=== PATIENT | male | born 1990 ===

== ENCOUNTER 2019-02-07 10:17 | Emergency (ER) | payer OTHER ==
[2019-02-07 10:21] VITALS: BMI 23.2
[2019-02-07 10:22] VITALS: RESP 18
[2019-02-07] MEDS ORDERED: MethylPREDNISolone 40 mg Vial IM STA (11:02)
--- NOTE | 2019-02-07 11:06 | C.PDOC ---
History Of Present Illness Patient is a 28 year old male, otherwise well, who presents to the ED c/o one week history of bilateral itchy rash to the arms. He states that the rash is very itchy and burning, crusty, and has been draining. He denies any treatment of his symptoms. Patient states that he works in construction and is unsure of any exposure to plants or other materials that may have caused his rash. He denies any new use of lotions, medications, ointments, fevers, recent travel, sick contacts, difficulty breathing, speaking, or swallowing. Time Seen by Provider: 02/07/19 10:54 Chief Complaint (Nursing): Abnormal Skin Integrity History Per: Patient History/Exam Limitations: no limitations Onset/Duration Of Symptoms: Days (one week) Current Symptoms Are (Timing): Still Present Quality Of Symptoms: Itching, Draining, Other (burning) Recent travel outside of the [place]: No Additional History Per: Patient Past Medical History Reviewed: Historical Data, Nursing Documentation, Vital Signs Vital Signs: Last Vital Signs Temp 98.7 F 02/07/19 10:22 Pulse 68 02/07/19 10:22 Resp 18 02/07/19 10:22 BP 136/82 02/07/19 10:22 Pulse Ox 98 02/07/19 10:22 Primary Care Provider: FAMILY PROVIDER,NO - Medical History PMH: No Chronic Diseases Surgical History: No Surg Hx Family History: States: No Known Family Hx - Social History Hx Alcohol Use: No Hx Substance Use: No Review Of Systems Except As Marked, All Systems Reviewed And Found Negative. Constitutional: Negative for: Fever, Chills Cardiovascular: Negative for: Chest Pain Respiratory: Negative for: Shortness of Breath Skin: Positive for: Rash (itchy, crusty, burning rash to bilateral arms. Has also been draining ) Physical Exam - Physical Exam Appears: Well, Non-toxic, No Acute Distress Skin: Rash (scattered excoriated maculopapular rash to anterior forearms. Some lesions have moreira crusting exudate ) Head: Atraumatic, Normacephalic Eye(s): bilateral: Normal Inspection Nose: Normal Oral Mucosa: Moist Tongue: Normal Appearing, No Swelling Lips: Normal Appearing, No Swelling Throat: Normal, No Erythema, No Drooling, No Mass Neck: Normal, Normal ROM, No Trachea Deviated Chest: Symmetrical Cardiovascular: Rhythm Regular Respiratory: Normal Breath Sounds, No Rales, No Rhonchi, No Wheezing Extremity: Normal ROM, No Tenderness Neurological/Psych: Oriented x3, Normal Speech, Normal Cognition ED Course And Treatment O2 Sat by Pulse Oximetry: 98 (on RA) Pulse Ox Interpretation: Normal Medical Decision Making Medical Decision Making: Plan: Solu-Medrol 125mg IM Patient with itchy nonpainful rash to the bilateral forearms. Appears well and nontoxic. Not likely infectious etiology. Works in construction. Rash appears to be contact dermatitis. Will treat with PO benadryl, topical hydrocortisone and PO prednisone. Patient feels somewhat improved s/p solu-medrol IM. No lip or tongue swelling. Nontoxic, NAD. No wheezing or SOB. Will follow-up with PMD and professional athletes coach. Will return with any worsening symptoms. Disposition Counseled Patient/Family Regarding: Diagnosis, Need For Followup, Rx Given - Disposition Referrals: FAMILY PROVIDER,NO [Family Provider] - Disposition: HOME/ ROUTINE Disposition Time: 11:43 Condition: IMPROVED Additional Instructions: Follow-up with your PMD and professional athletes coach. Return if symptoms worsen or persist. Prescriptions: DiphenhydrAMINE [Benadryl] 25 mg PO Q6 #25 cap Hydrocortisone 0.5% CREAM [Cortizone 0.5% CREAM] 30 applic TOP BID #1 tube predniSONE [Prednisone] 40 mg PO DAILY #5 tab Instructions: Contact Dermatitis (DC) Forms: [facility] (Trinidadian), Work Excuse Print Language: SENEGALESE - Clinical Impression Clinical Impression: Contact dermatitis - PA / GRAIN CLE[employer]ER / Resident Statement MD/DO has reviewed & agrees with the documentation as recorded. - Scribe Statement The provider has reviewed the documentation as recorded by the Felicia Valenzuela All medical record entries made by the Felicia were at my direction and personally dictated by me. I have reviewed the chart and agree that the record accurately reflects my personal performance of the history, physical exam, medical decision making, and the department course for this patient. I have also personally directed, reviewed, and agree with the discharge instructions and disposition.
[2019-02-07 11:58] VITALS: BP 123/71; PULSE 56; TEMP 98.8
[2019-02-07 15:13] VITALS: O2SAT 98
== END 2019-02-07 11:58 | disposition home or self-care (01) ==
LOC: C.ER 10:17
DX: L25.9 Unspecified contact dermatitis, unspecified cause (principal)
CPT/HCPCS: 96372; 99284; J2920